=== PATIENT | male | born 1990 | race Two or more races ===

== ENCOUNTER → 2018-06-26 | Emergency (ER) | payer SELFPAY ==
[2018-06-26 20:57] VITALS: BP 124/85; PULSE 75; RESP 18; TEMP 98; O2SAT 99
--- NOTE | 2018-06-27 09:10 | CARD ---
APPROVED REPORT Date of service: 06/26/2018 EKG Measurement Heart [id number] <Conclusion> Normal sinus rhythm Normal Electrocardiogram
== END | disposition left against medical advice (07) ==
LOC: H.ER 20:32
DX: Z02.89 Encounter for other administrative examinations (principal)